=== PATIENT | female | born 1985 | race Caucasian/White ===

== ENCOUNTER → 2019-02-03 | Emergency (ER) | payer BC, MEDICAID ==
[~2019-02-03] VITALS: Ht 154.9 cm; Wt 92.7 kg
[~2019-02-03] MED LIST: IOHEXOL 300MG/ML 150 ML BTL ONE; LORA-441 PO; LORAZEPAM 2 MG INJ IV ONE; SOD CHLORIDE 0.9% 1,000 ML IV ONE; SOD CHLORIDE 0.9% 100 ML ONE
[2019-02-03 00:49] VITALS: Ht 154.9 cm; Wt 92.7 kg
[2019-02-03 05:38] VITALS: BP 118/76; PULSE 92; RESP 18
== END | disposition home or self-care (01) ==
LOC: FTE 00:47
DX: O90.81 Anemia of the puerperium (principal); R06.02 Shortness of breath; F53.0 Postpartum depression; O90.89 Other complications of the puerperium, not elsewhere classified
CPT/HCPCS: 71045; 71275; 80053; 81001; 84484; 85025; 85378; 85610; 85730; 86850; 86900; 86901; 87086; 93005; 96361; 96374; 99285; J2060; J7030; Q9967